=== PATIENT | male | born 1960 | race American Indian/Alaskan Native ===

== ENCOUNTER 2019-06-26 06:59 | Day surgery (SDC) | payer OTHER ==
[2019-06-26] MEDS ORDERED: WATER FOR IRRIG STERILE 250 ML BOTTLE IR ONE (07:22)
[2019-06-26] MEDS ORDERED: SODIUM CHLORIDE 0.9% 1000 ML 1,000 ML ONE (07:33)
[2019-06-26] MEDS ORDERED: SODIUM CHLORIDE 0.9% 1000 ML 1,000 ML IV SCH (08:00)
--- NOTE | 2019-06-26 08:07 | Anesthesia Consultation ---
Anesthesia Consult and Med Hx Date of service: 06/26/19 - Airway Anesthetic Teeth Evaluation: Poor, Partials ROM Head & Neck: Adequate Mental/Hyoid Distance: Adequate Mallampati Class: Class III Intubation Access Assessment: Possibly Difficult - Pulmonary Exam CTA: Yes - Cardiac Exam Cardiac Exam: RRR - Pre-Operative Health Status ASA Pre-Surgery Classification: ASA3 Proposed Anesthetic Plan: MAC - Pulmonary Hx Smoking: Yes Hx Respiratory Symptoms: No Hx Sleep Apnea: No (HIGH RISK) - Cardiovascular System Hx Hypertension: Yes Hx Heart Attack/AMI: No Hx Percutaneous Transluminal Coronary Angioplasty (PTCA): No - Central Nervous System CVA: No Hx Psychiatric Problems: No - Gastrointestinal Hx Gastroesophageal Reflux Disease: No - Endocrine Hx Renal Disease: No Hx Liver Disease: No Hx Insulin Dependent Diabetes: No Hx Non-Insulin Dependent Diabetes: No Hx Thyroid Disease: No - Other Systems Hx Obesity: Yes (BMI 33) - Additional Comments Anesthesia Medical History Comments: Hx DVT, last dose eliquis 3 days ago. Unsure if he has had a PE int he past but no recent lung issues, no home O2, no hx heart failure.
--- NOTE | 2019-06-26 08:07 | Anesthesia Day of Surgery ---
Anesthesia Day of Surgery - Day of Surgery Patient Examined: Yes Patient H&P Reviewed: Yes Patient is NPO: Yes
[2019-06-26] MEDS ORDERED: LIDOCAINE (2%) 20 MG/1 ML VIAL 20 ML MDV INFILTRATI ONE (08:29)
[2019-06-26] MEDS ORDERED: PROPOFOL 200 MG/20 ML VIAL IV ONE ×2 (08:29)
--- NOTE | 2019-06-26 09:04 | Procedure Note ---
Date of procedure: 06/26/19 Pre-op diagnosis: Colon Polyp Screening/ P/H/O Colon Polyps Post-op diagnosis: other (Multiple,Recto-Sigmoid Polyps(removed by cold biopsy) and solitary (10 mm) Sessile Cecal Polyp (romoved by cold snare polypectomy).) Procedure: Colonoscopy with cold Snare Polypectomy and Cold Biopsy Anesthesia: MAC Surgeon: LEW MOSES Estimated blood loss: minimal Pathology: list Specimen disposition: to lab Condition: stable
--- NOTE | 2019-06-26 09:13 | Operative Report ---
PROCEDURE: Colonoscopy with cold snare polypectomy and cold biopsy. INDICATIONS: A 59-year-old -[place] gentleman with an underlying history of diabetes mellitus type 2, hypertension, recent history of pneumonia. No family history of cancer. He has prior history of colon polyps. Last colonoscopy was done a few years ago. DESCRIPTION OF PROCEDURE: Procedure was done after getting informed consent with MAC anesthesia. Initial rectal exam was unremarkable. Instrument was passed through the rectum onto the cecum, which was identified with ileocecal valve and the appendiceal orifice. Visualization was fair to good. There was a 9-10 mm sessile polyp noted in the cecum that was removed by cold, snare polypectomy and retrieved. The remaining part of the cecum, ascending colon, transverse colon, descending colon and most of the sigmoid showed normal mucosa. There were multiple small possibly hyperplastic polyps noted in the rectosigmoid area that were removed by cold biopsy. There was minimal bleeding from the polypectomy site and no complications associated with the procedure. The rectum showed minor internal hemorrhoid on the retroverted view. ASSESSMENT: Colon polyp screening, past history of colon polyps, but no family history of cancer, multiple rectosigmoid polyps removed by cold biopsy, solitary cecal polyp removed by cold snare polypectomy and retrieved. Minor internal hemorrhoid. No diverticular disease noted. Again, there was minimal bleeding from the polypectomy site and no complications associated with the procedure. Procedure was done in the GI lab with assistance of the GI lab team, which included Sara HOWARD and juany Bautista as well as with assistance of Anesthesia. The patient will be asked to avoid aspirin and aspirin-related products for the next 4 days. Otherwise, resume home medication and follow up in the office in 1-2 weeks' time. JOB# [id number] ISABEL/VIET APARICIO
[2019-06-26 10:01] VITALS: BP 134/88
--- NOTE | 2019-06-26 10:13 | Post Anesthesia Evaluation ---
- Post Anesthesia Evaluation Patient Participated: Yes Airway Patent: Yes Stable Respiratory Function: Yes Nausea/Vomiting: No Temp > 96.8F: Yes Pain Manageable: Yes Adequeate Hydration: Yes Anesthesia Complications: No
== END 2019-06-26 10:01 | disposition home or self-care (01) ==
LOC: GIO 06:59
DX: Z12.11 Encounter for screening for malignant neoplasm of colon (principal); D12.0 Benign neoplasm of cecum; K64.8 Other hemorrhoids; E66.9 Obesity, unspecified; I10 Essential (primary) hypertension; E11.9 Type 2 diabetes mellitus without complications; M19.90 Unspecified osteoarthritis, unspecified site; Z86.010 Personal history of colon polyps; Z68.33 Body mass index [BMI] 33.0-33.9, adult; Z79.4 Long term (current) use of insulin; Z79.899 Other long term (current) drug therapy; Z79.84 Long term (current) use of oral hypoglycemic drugs; Z87.891 Personal history of nicotine dependence; Z86.718 Personal history of other venous thrombosis and embolism; Z88.8 Allergy status to other drugs, medicaments and biological substances; Z88.0 Allergy status to penicillin; Z91.030 Bee allergy status; Z87.01 Personal history of pneumonia (recurrent)
CPT/HCPCS: 45380; 45385; 82962; 88305; J2704; J7030